=== PATIENT | male | born 1985 | race Caucasian/White ===

== ENCOUNTER 2016-03-27 20:17 | Emergency (ER) | payer SELFPAY ==
[2016-03-27 20:45] VITALS: TEMP 98.3
[2016-03-27] MEDS ORDERED: levETIRAcetam IV 1,000 MG in SALINE 1 100ML.BAG IVPB STA (21:55)
[2016-03-27 22:03] LABS: Glucose,Whole Blood 70 mg/dL (75-99)
[2016-03-27 22:07] LABS: Basophils % (A) 1 %; CH 35.4; Eosinophils # (A) 0.1 k/uL (0-0.7); Eosinophils % (A) 1 %; HCT 42.9 % (39.0-53.0); HDW 2.28; Luc # (Auto) 0.22; Luc % (Auto) 4; Lymphocytes # (A) 1.7 k/uL (1.0-4.8); Lymphocytes % (A) 33 %; MCH 35.4 pg (25.0-35.0); MCHC 34.9 g/dL (31.0-37.0); MCV 101.6 fL (80.0-100.0); Macrocytosis Slight; Mean Platelet Volume 9.6; Monocytes # (A) 0.3 k/uL (0-1.0); Monocytes % (A) 5 %; Neutrophils # (A) 2.9 k/uL (1.3-7.7); Neutrophils % (A) 56 %; RBC 4.22 m/uL (4.30-5.90); WBC 5.2 k/uL (3.8-10.6); WBC (Perox) 5.09
[2016-03-27 22:16] LABS: ALT 79 U/L (21-72); AST 83 U/L (17-59); Alkaline Phosphatase 80 U/L (38-126); Anion Gap 12 mmol/L; Blood Urea Nitrogen 8 mg/dL (9-20); Calcium 9.3 mg/dL (8.4-10.2); Carbon Dioxide 24 mmol/L (22-30); Chloride 110 mmol/L (98-107); Glucose 86 mg/dL (74-99); Non-African American GFR(MDRD) >60 (>60 ml/min/1.73 sqM); Potassium 4.1 mmol/L (3.5-5.1); Sodium 146 mmol/L (137-145); Total Bilirubin 0.4 mg/dL (0.2-1.3); Total Protein 7.1 g/dL (6.3-8.2)
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
--- NOTE | 2016-03-27 22:33 | CT ---
EXAMINATION TYPE: CT brain wo con DATE OF EXAM: 03/27/2016 10:24 PM COMPARISON: NONE HISTORY: Seizure, alcohol withdrawl CT DLP: 1064.30 mGycm Automated exposure control for dose reduction was used. FINDINGS: There is no acute intracranial hemorrhage, mass effect, or midline shift identified. The ventricles and sulci are within normal limits in size. The globes are intact. [id number] mucosal thickeni ng is noted in the left maxillary sinus and and the right maxillary sinus and the ethmoid sinuses wit h chronic sinusitis changes. IMPRESSION: No acute intracranial hemorrhage, mass effect, or midline shift is seen. Chronic sinusitis changes.
[2016-03-27] MEDS ORDERED: LORazepam 2 MG/ML SYRINGE IV STA (23:34)
[2016-03-28] MEDS ORDERED: chlordiazePOXIDE 25 MG CAP PO STA (00:27)
[2016-03-28 00:48] VITALS: BP 120/76; PULSE 83; RESP 16
== END 2016-03-28 00:46 | disposition home or self-care (01) ==
LOC: EC 20:17
DX: R56.9 Unspecified convulsions (principal); F10.239 Alcohol dependence with withdrawal, unspecified; F11.10 Opioid abuse, uncomplicated; F19.20 Other psychoactive substance dependence, uncomplicated; F17.200 Nicotine dependence, unspecified, uncomplicated; Z79.899 Other long term (current) drug therapy
CPT/HCPCS: 99285; 96374; 82075; 36415; 93005; 80053; 85025; 80306; 70450; J2060; J1953

== ENCOUNTER 2017-02-06 02:04 | Emergency (ER) | payer OTHER ==
[2017-02-06] MEDS ORDERED: KETOROLAC 30 MG/ML 1 ML VIAL IM STA (02:09)
[2017-02-06 02:11] VITALS: BP 149/77; PULSE 85; RESP 18; TEMP 97.9
--- NOTE | 2017-02-06 02:11 | ED ---
General Adult HPI - General Stated complaint: R Knee pain Time Seen by Provider: 02/06/17 02:06 Source: patient, EMS, RN notes reviewed - History of Present Illness Initial comments: 31-year-old male presents for evaluation of right knee pain. Patient was wrestling around with a friend, fell and struck his right knee. He has had constant pain since the injury. Pain is described as severe sharp pain on the anterior knee. Patient denies any numbness or tingling distally injury. Denies any ankle or hip injury. Patient denies head or neck trauma associated with the fall. Denies any other injury. Patient was drinking alcohol - Related Data Previous Rx's Medication Instructions Recorded Albuterol Inhaler [Ventolin Hfa 1 - 2 puff INHALATION Q6HR #1 12/04/14 Inhaler] inhaler Azithromycin [Zithromax Z-pack] 0 mg PO DIRECTED #6 tab 12/04/14 Benzonatate [Tessalon Perles] 100 mg PO TID #30 capsule 12/04/14 Ibuprofen [Motrin] 800 mg PO Q8HR PRN #20 tab 03/28/16 chlordiazePOXIDE HCl [Librium] 25 mg PO QID #20 capsule 03/28/16 Ibuprofen [Motrin] 600 mg PO Q8HR PRN #24 tab 02/06/17 Allergies Allergy/AdvReac Type Severity Reaction Status Date / Time No Known Allergies Allergy Verified 02/06/17 02:11 Review of Systems ROS Statement: Those systems with pertinent positive or pertinent negative responses have been documented in the HPI. ROS Other: All systems not noted in ROS Statement are negative. Past Medical History Past Medical History: No Reported History History of Any Multi-Drug Resistant Organisms: None Reported Past Surgical History: No Surgical Hx Reported Past Psychological History: Anxiety Smoking Status: Current every day smoker Past Alcohol Use History: Abuse, Daily, Heavy Past Drug Use History: Prescription Drug Abuse General Exam General appearance: alert, in no apparent distress, appears intoxicated Head exam: Present: atraumatic, normocephalic Eye exam: Present: normal appearance, PERRL ENT exam: Present: normal exam Neck exam: Present: normal inspection, full ROM. Absent: tenderness Respiratory exam: Present: normal lung sounds bilaterally. Absent: respiratory distress, wheezes Cardiovascular Exam: Present: regular rate, normal rhythm GI/Abdominal exam: Present: soft. Absent: distended, tenderness Extremities exam: Present: normal inspection, tenderness, normal capillary refill, other (Right knee: Tenderness of the anterior surface of the knee, primarily the proximal tibia. No external signs of trauma. No obvious joint effusion. Range of motion limited secondary to pain. Distal pulses intact.) Back exam: Present: normal inspection, full ROM Neurological exam: Present: alert, oriented X3, CN II-XII intact. Absent: motor sensory deficit Psychiatric exam: Present: normal affect, normal mood Skin exam: Present: warm, dry, intact. Absent: cyanosis, diaphoretic Course Vital Signs 02/06/17 02:08 Temperature 97.9 F Pulse Rate 85 Respiratory 18 Rate Blood Pressure 149/77 O2 Sat by Pulse 100 Oximetry Medical Decision Making - Medical Decision Making 31-year-old male with acute traumatic right knee pain. No external signs of trauma on examination, no deformity. X-ray is negative for acute bony abnormality. Patient is able to ambulate in the emergency department. He has crutches at bedside. He will be given pain medication and is instructed to ice and elevate the knee. He will return with worsening pain. He is placed in a knee immobilizer and given orthopedic follow-up if pain persists. Disposition Clinical Impression: Contusion of knee Disposition: HOME SELF-CARE Condition: Good Instructions: Knee Pain (ED) Prescriptions: Ibuprofen [Motrin] 600 mg PO Q8HR PRN #24 tab PRN Reason: Pain Referrals: None,Stated [Primary Care Provider] - 1-2 days Roseann Abraham MD [REFERRING] - 1-2 days Juanjo Romero MD [STAFF PHYSICIAN] - 1-2 days Time of Disposition: 03:24
--- NOTE | 2017-02-06 03:15 | XR ---
EXAM: XR Right Knee, 3 views CLINICAL HISTORY: Reason: Pain TECHNIQUE: Three views of the right knee. COMPARISON: None. FINDINGS: Bones/joints: Unremarkable. No acute fracture. No dislocation. Soft tissues: Unremarkable. IMPRESSION: Unremarkable right knee x-rays.
== END 2017-02-06 03:31 | disposition home or self-care (01) ==
LOC: EC 02:04
DX: S80.11XA Contusion of right lower leg, initial encounter (principal); F17.200 Nicotine dependence, unspecified, uncomplicated; W18.39XA Other fall on same level, initial encounter; W22.8XXA Striking against or struck by other objects, initial encounter; Y93.72 Activity, wrestling
CPT/HCPCS: 73562; 99283; 96372; L1830; J1885

== ENCOUNTER 2017-06-28 23:45 | Emergency (ER) | payer OTHER ==
[2017-06-29 00:35] LABS: Appearance,Urine Clear (Clear); Bilirubin,Urine Negative (Negative); Blood,Urine Trace (Negative); Color,Urine Light Yellow; Glucose,Urine (UA) Negative (Negative); Ketones,Urine Negative (Negative); Leukocyte Esterase,Urine Negative (Negative); Nitrite,Urine Negative (Negative); PH, Urine 5.5 (5.0-8.0); Protein,Urine Trace (Negative); RBC,Urine 1 /hpf (0-5); Specific Gravity,Urine 1.003 (1.001-1.035); Urobilinogen,Urine <2.0 mg/dL (<2.0); WBC,Urine <1 /hpf (0-5)
[2017-06-29] MEDS ORDERED: HYDROcodone/APAP 5-325MG 1 EACH TAB PO STA (00:46)
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
--- NOTE | 2017-06-29 01:49 | XR ---
EXAMINATION TYPE: XR ribs RT w pa chest xray DATE OF EXAM: 06/29/2017 COMPARISON: NONE HISTORY: Rib pain TECHNIQUE: 5 views FINDINGS: Heart and mediastinum are normal. Lungs are clear. There is no sign of pleural effusion or pneumothorax. The right ribs appear intact. IMPRESSION: Normal chest. Normal right ribs.
[2017-06-29 01:57] VITALS: BP 118/72; PULSE 100; RESP 16; TEMP 98.8
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
== END 2017-06-29 02:28 | disposition home or self-care (01) ==
LOC: EC 23:45
DX: S02.2XXA Fracture of nasal bones, initial encounter for closed fracture (principal); S01.511A Laceration without foreign body of lip, initial encounter; S05.11XA Contusion of eyeball and orbital tissues, right eye, initial encounter; S00.03XA Contusion of scalp, initial encounter; S20.211A Contusion of right front wall of thorax, initial encounter; S40.011A Contusion of right shoulder, initial encounter; J32.4 Chronic pansinusitis; M79.89 Other specified soft tissue disorders; F10.129 Alcohol abuse with intoxication, unspecified; F17.200 Nicotine dependence, unspecified, uncomplicated; Y04.0XXA Assault by unarmed brawl or fight, initial encounter; Y93.89 Activity, other specified; Y92.009 Unspecified place in unspecified non-institutional (private) residence as the place of occurrence of the external cause
CPT/HCPCS: 70450; 70486; 72125; 72131; 81001; 93005; 99285

== ENCOUNTER 2019-05-10 06:25 | Day surgery (SDC) | payer OTHER ==
[2019-05-09 09:43] VITALS: BMI 21.4
[~2019-05-10 06:25] MED LIST: FAMOTIDINE 20 MG/2 ML VIAL IV ONE; LACTATED RINGERS 1,000 ML IV SCH; ONDANSETRON 4 MG/2 ML VIAL IVP ONE; fentaNYL (PF) 50 MCG/ML 2 ML AMP IV PRN
[2019-05-10] MEDS ORDERED: LIDOCAINE 1% (10MG/ML) FOR IV START INTRADERMA ONE (06:54)
[2019-05-10] MEDS ORDERED: DEXAMETHASONE SOD PHOSPHATE 10 MG/ML 1 ML VIAL IV ONE (06:56)
[2019-05-10] MEDS ORDERED: MIDAZOLAM 2 MG/2 ML VIAL ONE (07:24)
[2019-05-10] MEDS ORDERED: NEOSTIGMINE 1 MG/ML 10 ML VIAL ONE (07:24)
[2019-05-10] MEDS ORDERED: fentaNYL (PF) 50 MCG/ML 2 ML AMP ONE (07:24)
[2019-05-10] MEDS ORDERED: PROPOFOL 10 MG/ML 20 ML VIAL IV ONE (07:24)
[2019-05-10] MEDS ORDERED: GLYCOPYRROLATE 0.2 MG/ML 2 ML VIAL ONE (07:24)
[2019-05-10] MEDS ORDERED: LIDOCAINE 1% INJ 10MG/ML (20 ML MDV) ONE (07:24)
[2019-05-10] MEDS ORDERED: diphenhydrAMINE 50 MG/ML 1 ML VIAL ONE (07:24)
[2019-05-10] MEDS ORDERED: ROCURONIUM BROMIDE 10 MG/ML 5 ML VIAL IV ONE (07:24)
[2019-05-10] MEDS ORDERED: SUCCINYLCHOLINE CHLORIDE 100 MG/5 ML SYR IV ONE (07:24)
--- NOTE | 2019-05-10 08:23 | P.OP ---
Date of Procedure: 05/10/19 Preoperative Diagnosis: hoarseness, dysphonia bilateral vocal cord lesions with bleeding noted Postoperative Diagnosis: Same Procedure(s) Performed: Direct microscopic laryngoscopy with removal of bilateral vocal cord lesions Anesthesia: KRISTINA Surgeon: Nash Abraham Estimated Blood Loss (ml): 0 Pathology: other (Bilateral vocal cord lesions) Condition: stable Disposition: PACU Indications for Procedure: Patient presented to the office is a 33-year-old white male smoker who had severe dysphonia and hoarseness. The patient was examined and found to have bilateral vocal cord lesions. There was blood noted on the right vocal cord lesion which was friable an ulcerative. Surgical removal of these lesions were recommended. They were not close to the anterior commissure so we felt that we could remove both lesions at the same time and did not have worry of webbing. Operative Findings: Bilateral vocal cord lesions removed Description of Procedure: Patient was taken to the operative room and placed in the supine position. A general inhalation anesthetic was administered to the patient by mask and subsequently intubated with a cuffed endotracheal tube by the department of anesthesia with a functioning IV line in place. The patient was monitored throughout the entire case by the department of anesthesia. Tooth guard was placed and a Jako laryngoscope was placed into the patient's mouth with care to avoid any trauma to the lips teeth gums or tongue. The scope was inserted and the entire base of tongue vallecula epiglottis true and false vocal cords and arytenoid postcricoid space lateral pharynx hypopharynx piriform sinus etc. etc. was examined. This was placed on suspension on a Lewy and magnified with a 400 mm Leica microscope. We examine this area under direct magnification week. Delicately removed both of these lesions that were located bilaterally but were not located at the anterior commissure so we were not worried about webbing. We did recommend that the patient go on a solid 7-10 days of absolute voice rest. Patient tolerated this well and a follow-up is scheduled.
[2019-05-10 08:24] VITALS: TEMP 97
[2019-05-10] MEDS: HYDROmorphone 0.5 MG/0.5 ML SYRINGE IVP PRN ×3 (08:25→08:46)
[2019-05-10] MEDS ORDERED: KETOROLAC 30 MG/ML 1 ML VIAL IVP ONE ×2 (08:46→08:47)
[2019-05-10 08:55] VITALS: RESP 18
[2019-05-10 09:19] VITALS: BP 130/82; PULSE 53
== END 2019-05-10 10:06 | disposition home or self-care (01) ==
LOC: OR 06:25
PROVIDERS: ATTEND Otolaryngology
DX: J38.1 Polyp of vocal cord and larynx (principal); J38.3 Other diseases of vocal cords; F17.210 Nicotine dependence, cigarettes, uncomplicated; F98.8 Other specified behavioral and emotional disorders with onset usually occurring in childhood and adolescence; Z79.899 Other long term (current) drug therapy
CPT/HCPCS: 88305; 31541; J2250; J1200; J1100; J2710; J2405; J0690; J2001; J3010; J1885; J0330; J2704; J1170